=== PATIENT | male | born 1960 | race Caucasian/White ===

== ENCOUNTER 2016-11-06 14:13 | Emergency (ER) | payer MEDICARE, OTHER ==
[2016-11-06 14:24] VITALS: RESP 18; O2SAT 97
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
[2016-11-06 17:37] VITALS: BP 129/76; PULSE 55; TEMP 97.9
== END 2016-11-06 17:41 | disposition home or self-care (01) ==
LOC: C.ER 14:13
DX: S09.90XA Unspecified injury of head, initial encounter (principal); Y08.89XA Assault by other specified means, initial encounter; Y93.9 Activity, unspecified; Y92.9 Unspecified place or not applicable